=== PATIENT | male | born 1960 | race Caucasian/White ===

== ENCOUNTER 2019-12-04 11:04 | Emergency (ER) | payer MEDICARE, MEDICAID ==
[~2019-12-04] VITALS: Ht 172.7 cm; Wt 110.9 kg
[~2019-12-04 11:04] MED LIST: AKWASOL OU; AMLO10TA PO; ASPI81TA85 PO; CARV25TA PO; CLON-412 PO; EXEM25TA PO; HYDR-3713 PO; IRBE150T7 PO; NITR4TASL SL; OSTETAB4 PO; PANT40TA3 PO; PLAV1TAB2 PO; SPIR-10 PO; TORS10TA3 PO; VIAG100T PO; VITMTA PO
[2019-12-04] MEDS ORDERED: FURO40TA2 PO (11:43)
[2019-12-04] MEDS ORDERED: ELIQ5TAB PO (11:43)
[2019-12-04] MEDS ORDERED: ATOR40TA75 PO (11:43)
[2019-12-04] MEDS ORDERED: CLEO300C2 PO (11:43)
[2019-12-04 12:55] VITALS: BP 129/72
--- NOTE | 2019-12-06 10:35 | REP ---
REASON FOR EXAM: Pain and swelling after trauma. Preliminary report was given by Dr. Lentz. Degenerative changes are seen involving the knee and ankle. There are plantar and retrocalcaneal heel spurs. Seen only on the lateral view, there is slight cortical irregularity involving posterior cortex of the fibular head. This is probably chronic, however, a four-view knee series would image this area to a greater degree. If the patient has proximal pain about the knee, then I would recommend a four-view knee series. Electronically Signed by Michael Krishnamurthy DO 12/06/2019 10:58 A
--- NOTE | 2019-12-06 10:37 | REP ---
DEEP VENOUS ULTRASONOGRAPHY LEFT THIGH, RULE OUT DVT: REASON FOR EXAM: Pain and swelling. Preliminary report given by Dr. Lentz. TECHNIQUE: Multiple ultrasonographic images of the deep venous structures of the left thigh were obtained from the common femoral vein to the popliteal vein along with Doppler interrogation and color flow Doppler images. FINDINGS: There is no abnormal echogenic material seen within any of the visualized deep venous structures that would suggest acute thrombosis. Coaptation is unremarkable throughout. Doppler interrogation shows an expected response to respiratory variability and augmentation. The color flow images show what appears to be a normal vascular pattern throughout. IMPRESSION: There is no ultrasonographic evidence of deep venous thrombosis involving any of the visualized deep venous structures of the left thigh, as described above. Electronically Signed by Michael Krishnamurthy DO 12/06/2019 10:58 A
== END 2019-12-04 12:56 | disposition home or self-care (01) ==
LOC: M ED 11:04
DX: L03.116 Cellulitis of left lower limb (principal); M79.662 Pain in left lower leg; M79.89 Other specified soft tissue disorders; M77.32 Calcaneal spur, left foot; M17.12 Unilateral primary osteoarthritis, left knee; M19.072 Primary osteoarthritis, left ankle and foot; I10 Essential (primary) hypertension; E78.00 Pure hypercholesterolemia, unspecified; Z95.5 Presence of coronary angioplasty implant and graft; Z79.01 Long term (current) use of anticoagulants; K21.9 Gastro-esophageal reflux disease without esophagitis; Z79.02 Long term (current) use of antithrombotics/antiplatelets; Z79.899 Other long term (current) drug therapy; Q61.3 Polycystic kidney, unspecified

== ENCOUNTER 2021-10-30 09:30 | Inpatient (IN) | payer MEDICARE, MEDICAID ==
[~2021-10-30] VITALS: Ht 172.7 cm; Wt 118.0 kg
[~2021-10-30 09:30] MED LIST changes: -ASPI81TA85 PO; +ASPI81TA86 PO; +ATOR40TA75 PO; +CLEO300C2 PO; +ELIQ5TAB PO; +FURO40TA2 PO; +PANT40TA29 PO; -PANT40TA3 PO
[2021-10-30 11:46] LABS: BASO # 0.1 10^3/uL (0.0-0.2); BASO % 0.6 % (0.0-1.0); EOS # 0.2 10^3/uL (0.0-0.5); EOS % 1.7 % (0.0-3.0); HEMATOCRIT 45.8 % (42.0-52.0); HEMOGLOBIN 15.1 g/dl (13.5-17.5); LYMPH # 0.9 10^3/uL (1.5-5.0); LYMPH % 10.3 % (24.0-44.0); MEAN CORPUSCULAR VOLUME 90.9 fl (80.0-96.0); MONO # 0.8 10^3/uL (0.0-0.8); MONO % 9.3 % (2.0-8.0); NEUTROPHILS # 6.7 10^3/uL (1.5-8.5); NEUTROPHILS % 77.3 % (36.0-66.0); PLATELET COUNT, AUTOMATED 183 10^3/uL (150-450); RED BLOOD COUNT 5.04 10^6/uL (4.30-6.10); WHITE BLOOD COUNT 8.7 10^3/uL (4.0-10.0)
[2021-10-30] MEDS ORDERED: NS 1,000 ML IV ONE ×2 (12:15→12:20)
[2021-10-30] MEDS ORDERED: ONDANSETRON 4MG/2ML VIAL IV ONE (12:20)
[2021-10-30] MEDS ORDERED: MORPHINE 2 MG/ML 1ML VIAL IV ONE ×2 (12:20→13:15)
[2021-10-30 12:42] LABS: ALBUMIN 3.7 GM/DL (3.2-5.2); BILIRUBIN,DIRECT 0.1 MG/DL (0.0-0.2); BILIRUBIN,TOTAL 0.6 MG/DL (0.2-1.0); TOTAL PROTEIN 7.3 GM/DL (6.4-8.2)
[2021-10-30 13:01] LABS: CALCIUM LEVEL 9.1 MG/DL (8.8-10.2); CREATININE FOR GFR 2.11 MG/DL (0.70-1.30); GLOMERULAR FILTRATION RATE 34.2 (>49); POTASSIUM SERUM 4.8 MEQ/L (3.5-5.1)
[2021-10-30] MEDS ORDERED: MORPHINE 4 MG/ML 1ML VIAL/SYRINGE IV ONE (14:55)
[2021-10-30] MEDS ORDERED: fentaNYL 100 MCG/2 ML INJECTION IV ONE ×2 (16:25→19:15)
[2021-10-30] MEDS ORDERED: PROHANCE 279.3MG/ML 15ML VIAL As Ordered ONE (16:57)
[2021-10-30] MEDS ORDERED: CARVedilol 12.5 MG TAB PO ONE (18:45)
[2021-10-30] MEDS ORDERED: amLODIPine 5 MG TAB PO ONE (18:45)
[2021-10-30] MEDS ORDERED: FUROSEMIDE 40 MG TAB PO ONE (18:50)
[2021-10-30] MEDS ORDERED: DOXAZOSIN MESYLATE 1 MG TAB PO SCH (21:00)
[2021-10-30] MEDS ORDERED: FURO40TA2 PO (21:05)
[2021-10-30] MEDS ORDERED: ELIQ5TAB PO (21:09)
[2021-10-30] MEDS ORDERED: ACETAMINOPHEN TAB 650MG DOSE (2X325MG) PO PRN (22:15)
[2021-10-30 22:19] LABS: RSV AMPLIFICATION NEGATIVE (NEGATIVE)
[2021-10-30] MEDS: NS 1,000 ML IV SCH (22:46)
[2021-10-31] MEDS ORDERED: REPA140I2 SC (00:31)
[2021-10-31] MEDS ORDERED: TEST75GE TOP (00:31)
[2021-10-31] MEDS ORDERED: GLUCTAB6 PO (00:31)
[2021-10-31] MEDS ORDERED: ANAS1TAB2 PO (00:31)
[2021-10-31] MEDS ORDERED: VASC1CAP2 PO (00:31)
[2021-10-31] MEDS ORDERED: FLON1SPR (00:31)
[2021-10-31] MEDS ORDERED: ASPI-161 PO (00:31)
[2021-10-31] MEDS ORDERED: IRBE300T7 PO (00:31)
[2021-10-31] MEDS ORDERED: CIAL20TA PO (00:31)
[2021-10-31] MEDS ORDERED: FAMO20TA PO (00:31)
[2021-10-31] MEDS ORDERED: JARD1TAB3 PO (00:31)
[2021-10-31] MEDS ORDERED: DOXA1TAB42 PO (00:31)
[2021-10-31] MEDS ORDERED: COQ-100C5 PO (00:31)
[2021-10-31] MEDS ORDERED: HOME MED LIST COMPLETE! XX SCH (00:40)
[2021-10-31] MEDS ORDERED: CARVedilol 12.5 MG TAB PO ONE (02:00)
[2021-10-31] MEDS ORDERED: IRBESARTAN 150MG TAB PO ONE (02:00)
[2021-10-31] MEDS ORDERED: PILL CUTTER 1 EACH XX ONE (02:49)
[2021-10-31] MEDS: MORPHINE 2 MG/ML 1ML VIAL IV PRN ×2 (03:02→07:53)
[2021-10-31] MEDS: NS 1,000 ML IV SCH (03:30)
[2021-10-31] MEDS ORDERED: LIDOCAINE 5% (LIDODERM) PATCH TD ONE (06:00)
[2021-10-31] MEDS ORDERED: MORPHINE 2 MG/ML 1ML VIAL IV ONE (06:00)
[2021-10-31 06:53] LABS: HEMATOCRIT 40.4 % (42.0-52.0); MEAN CORPUSCULAR HEMOGLOBIN 29.6 pg (27.0-33.0); MEAN CORPUSCULAR HGB CONC 32.2 g/dl (32.0-36.5); PLATELET COUNT, AUTOMATED 155 10^3/uL (150-450); RED BLOOD COUNT 4.39 10^6/uL (4.30-6.10); WHITE BLOOD COUNT 8.3 10^3/uL (4.0-10.0)
[2021-10-31 07:19] LABS: ALBUMIN 3.2 GM/DL (3.2-5.2); BILIRUBIN,TOTAL 0.9 MG/DL (0.2-1.0); CALCIUM LEVEL 8.8 MG/DL (8.8-10.2); CREATININE FOR GFR 1.96 MG/DL (0.70-1.30); GLOMERULAR FILTRATION RATE 37.2 (>49); POTASSIUM SERUM 4.5 MEQ/L (3.5-5.1); TOTAL PROTEIN 6.2 GM/DL (6.4-8.2)
[2021-10-31] MEDS ORDERED: PANTOPRAZOLE 40MG TAB (PROTONIX) PO SCH (09:00)
[2021-10-31] MEDS ORDERED: NITROGLYCERIN 0.4 MG SUBL TABLET SL PRN (09:00)
[2021-10-31] MEDS ORDERED: IRBESARTAN 150MG TAB PO SCH (09:00)
[2021-10-31] MEDS ORDERED: FUROSEMIDE 40 MG TAB PO SCH (09:00)
[2021-10-31] MEDS ORDERED: CARVedilol 12.5 MG TAB PO SCH (09:00)
[2021-10-31] MEDS ORDERED: FLUTICASONE PROP 0.05% NASAL SPRAY 16 GM (FLONASE) SCH (09:00)
[2021-10-31] MEDS ORDERED: MULTIVITAMINS/MINERALS THERAP 1 TAB PO SCH (09:00)
[2021-10-31] MEDS ORDERED: APIXABAN 5 MG TAB (ELIQUIS) PO SCH (09:00)
[2021-10-31 09:56] LABS: ABG BASE EXCESS -3.2 (-2.0-2.0); ABG HCO3 21.7 MEQ/L (22.0-26.0); ABG O2 SATURATION 90.4 % (95.0-99.0); ABG PARTIAL PRESSURE CO2 38.4 mmHg (35.0-45.0); ABG PARTIAL PRESSURE O2 60.5 mmHg (75.0-100.0); ABG STANDARD HCO3 21.7 MEQ/L (22.0-26.0); ABG TOTAL CO2 22.9 MEQ/L (23.0-31.0)
[2021-10-31] MEDS ORDERED: ACET1TAB55 PO (10:52)
[2021-10-31] MEDS ORDERED: OXYC1TAB23 PO (10:52)
[2021-10-31 12:00] VITALS: BP 170/89
[2021-10-31] MEDS ORDERED: **NOTE PATIENT COMMENT** MISC XX ONE (18:00)
[2021-10-31] MEDS ORDERED: ASPIRIN 81MG ENTERIC TABLET PO SCH (21:00)
[2021-10-31] MEDS ORDERED: FAMOTIDINE 20 MG TAB PO SCH (21:00)
== END 2021-10-31 12:13 | disposition home or self-care (01) | DRG 700 ==
LOC: EDBD 09:30 → M ED 09:30 → M ED INP 22:11
PROVIDERS: ADMIT Family Medicine; ATTEND Internal Medicine
DX: Q61.2 Polycystic kidney, adult type (principal); I25.118 Atherosclerotic heart disease of native coronary artery with other forms of angina pectoris; I12.9 Hypertensive chronic kidney disease with stage 1 through stage 4 chronic kidney disease, or unspecified chronic kidney disease; N18.32 Chronic kidney disease, stage 3b; E66.9 Obesity, unspecified; I48.0 Paroxysmal atrial fibrillation; E78.5 Hyperlipidemia, unspecified; G47.33 Obstructive sleep apnea (adult) (pediatric); Z95.2 Presence of prosthetic heart valve; I20.8 Other forms of angina pectoris; Z85.46 Personal history of malignant neoplasm of prostate; Z79.899 Other long term (current) drug therapy; Z79.82 Long term (current) use of aspirin; Z96.642 Presence of left artificial hip joint; Z79.01 Long term (current) use of anticoagulants; K76.0 Fatty (change of) liver, not elsewhere classified

== ENCOUNTER 2024-08-04 21:10 | Emergency (ER) | payer MEDICARE ==
[~2024-08-04] VITALS: Ht 172.7 cm; Wt 115.9 kg
[~2024-08-04 21:10] MED LIST changes: +ACET1TAB55 PO; -AKWASOL OU; +ANAS1TAB2 PO; +ARTIDRO2 OU; +ASPI-615 PO; +CIAL20TA PO; +CLOP75TA99 PO; +COQ-100C5 PO; +DOXA1TAB42 PO; +FAMO20TA PO; +FLON1SPR; +GLUCTAB7 PO; +IRBE150T27 PO; -IRBE150T7 PO; +IRBE300T25 PO; +JARD1TAB3 PO; +OXYC1TAB23 PO; -PLAV1TAB2 PO; +REPA140I2 SC; +TEST75GE TOP; +VASC1CAP2 PO
[2024-08-04] MEDS: fentaNYL 100 MCG/2 ML INJECTION IV ONE (22:09)
[2024-08-04] MEDS: diazePAM 10MG/2ML SYRINGE IV ONE (22:09)
[2024-08-04] MEDS: ONDANSETRON 4MG 2ML VIAL IV ONE (22:09)
[2024-08-05] MEDS: fentaNYL 100 MCG/2 ML INJECTION IV PRN (00:24)
[2024-08-05] MEDS: ANEXSIA, NORCO 7.5MG/325MG TABLET(HYDROCODONE/APAP) PO ONE (00:25)
[2024-08-05] MEDS: LIDOCAINE 2% MDV 20ML VIAL SC ONE (01:02)
[2024-08-05] MEDS: OXYMETAZOLINE 0.05% NASAL SPRAY ONE (04:13)
[2024-08-05 07:45] VITALS: BP 153/77; TEMP 97
[2024-08-05 07:52] VITALS: O2SAT 94
== END 2024-08-05 08:15 | disposition short-term general hospital (02) ==
LOC: M ED 21:10
DX: S06.6X0A Traumatic subarachnoid hemorrhage without loss of consciousness, initial encounter (principal); S01.01XA Laceration without foreign body of scalp, initial encounter; W01.198A Fall on same level from slipping, tripping and stumbling with subsequent striking against other object, initial encounter; K21.9 Gastro-esophageal reflux disease without esophagitis; N40.0 Benign prostatic hyperplasia without lower urinary tract symptoms; I10 Essential (primary) hypertension; I25.2 Old myocardial infarction; Z79.82 Long term (current) use of aspirin; Z79.1 Long term (current) use of non-steroidal anti-inflammatories (NSAID); Z79.899 Other long term (current) drug therapy; Z86.79 Personal history of other diseases of the circulatory system; Z79.01 Long term (current) use of anticoagulants
CPT/HCPCS: 70450; 72125; 72128; 73010; 96374; 96375; 99285; J2405; J3010; J3360